=== PATIENT | male | born 1970 | race Asian ===

== ENCOUNTER 2021-08-24 12:16 | Emergency (ER) | payer BC, OTHER ==
[2021-08-24 12:36] VITALS: BP 143/86; PULSE 89; TEMP 98.1; BMI 25.7
[2021-08-24] MEDS ORDERED: ACETAMINOPHEN 500 MG TABLET (FP) PO ONE (14:32)
[2021-08-24] MEDS ORDERED: ASPIRIN 81 MG CHEWABLE TABLETS PO ONE (14:33)
[2021-08-24] MEDS ORDERED: ACETAMINOPHEN 325 MG TABLET (FP) ONE (14:55)
[2021-08-24] MEDS ORDERED: ASPIRIN 81 MG CHEWABLE TABLETS ONE (15:27)
[2021-08-24 16:12] LABS: BASO % 0.3 % (0-2.0); HEMATOCRIT 47.7 % (35.4-49); HEMOGLOBIN 16.1 GM/dL (11.7-16.9); LYMPH % 23.2 % (8-40); MCH 30.8 pg (25.7-33.7); MCHC 33.8 g/dl (32.0-35.9); MEAN CELL VOLUME 91.3 fl (80-96); MEAN PLT VOLUME 7.1 fl (7.5-11.1); MONO % 9.5 % (3.8-10.2); PLATELET COUNT 234 10^3/uL (134-434); RBC 5.23 M/mm3 (4.00-5.60); RDW 13.7 % (11.9-15.9); WHITE BLOOD COUNT 8.4 K/mm3 (4.0-10.0)
[2021-08-24 16:25] LABS: INR 0.99 (0.83-1.09); PROTHROMBIN TIME (PATIENT) 11.4 SEC (9.7-13.0)
[2021-08-24 16:27] LABS: ACTIVATED PTT 34.9 SECONDS (25.2-36.5)
[2021-08-24 16:44] LABS: CALCIUM 9.7 mg/dL (8.5-10.1)
[2021-08-24 16:45] LABS: ALBUMIN 4.4 g/dl (3.4-5.0); BLOOD UREA NITROGEN 8.9 mg/dL (7-18)
[2021-08-24 16:48] LABS: CREATININE 0.8 mg/dL (0.55-1.3)
[2021-08-24 16:49] LABS: BILIRUBIN,TOTAL 1.2 mg/dL (0.2-1); TOT PROT 8.3 g/dl (6.4-8.2)
== END 2021-08-24 19:11 | disposition home or self-care (01) ==
LOC: JER 12:16
DX: R07.9 Chest pain, unspecified (principal)
CPT/HCPCS: 0241U-QW; 36415; 71046-TC-FY; 71275-TC; 80053; 84484; 85025; 85379; 85610; 85730; 93005; 93010; 99285-25; Q9967